=== PATIENT | male | born 1970 | race Caucasian/White ===

== ENCOUNTER 2017-11-24 19:11 | Emergency (ER) | payer MEDICAID ==
[~2017-11-24] VITALS: Ht 172.7 cm; Wt 60.0 kg
[2017-11-24 22:51] LABS: CLARITY URINE CLOUDY (CLEAR); COLOR URINE YELLOW (YELLOW); KETONES URINE NEGATIVE (NEGATIVE); LEUKOCYTE ESTERASE URINE NEGATIVE (NEGATIVE); NITRITE URINE NEGATIVE (NEGATIVE); OCCULT BLOOD URINE NEGATIVE (NEGATIVE); PH URINE 5.5 (4.5-8.0); PROTEIN URINE NEGATIVE (NEGATIVE); SPECIFIC GRAVITY URINE 1.021 (1.005-1.030); UROBILINOGEN URINE 0.2 E.U./dL (0.2-1.0)
[2017-11-25] MEDS ORDERED: MORPHINE SULFATE 4 MG/ML CPJ (NOT FOR IM USE) IV STA (02:38)
[2017-11-25] MEDS ORDERED: ONDANSETRON HCL 4MG/2ML INJ IV STA (02:38)
[2017-11-25 02:44] LABS: CHLORIDE 107 mEq/L (98-107)
[2017-11-25 02:52] LABS: ETHANOL BLOOD < 10 mg/dL
[2017-11-25 02:53] LABS: BASOPHILS % 0.6 % (0.0-2.0); EOSINOPHILS % 0.8 % (0.0-5.0); LYMPHOCYTES % 22.7 % (20.0-50.0); MEAN CORPUSCULAR HEMOGLOBIN 31.5 pg (28.0-32.0); MEAN PLATELET VOLUME 7.4 fl (7.4-10.4); MONOCYTES % 8.9 % (2.0-8.0); PLATELET 295 x1000/uL (130-400); RED BLOOD CELL COUNT 4.78 mill/uL (4.7-6.1); RED CELL DISTRIBUTION WIDTH 13.4 % (11.6-14.6)
[2017-11-25] MEDS ORDERED: IOHEXOL-300 100 ML BOTTLE ONE (04:19)
[2017-11-25 05:25] VITALS: BP 137/91
== END 2017-11-25 05:50 | disposition home or self-care (01) ==
LOC: ER 19:11 → CANBEDREQ 11-25 08:37
DX: R10.30 Lower abdominal pain, unspecified (principal); R19.7 Diarrhea, unspecified; R03.0 Elevated blood-pressure reading, without diagnosis of hypertension; Z85.828 Personal history of other malignant neoplasm of skin; F17.210 Nicotine dependence, cigarettes, uncomplicated; F12.90 Cannabis use, unspecified, uncomplicated
CPT/HCPCS: 36415; 71045; 74177; 80053; 81003; 83605; 83690; 84484; 85025; 93005; 96374; 96375; 99285; G0482; J2270; J2405; Q9967